=== PATIENT | male | born 1935 | race Caucasian/White ===

== ENCOUNTER 2016-11-02 09:29 | Observation (INO) ==
--- NOTE | 2016-11-02 09:48 | Emergency Department Note ---
Disposition Clinical Impression: Elevated troponin, Weakness Chest pain Qualifiers: Chest pain type: chest pain due to myocardial ischemia Ischemic chest pain type : unstable angina pectoris Qualified Code(s): I20.0 - Unstable angina Disposition: Admitted As Inpatient Condition: Fair Referrals: NO,PCP [Non-Partnered Physician] - Forms: ED Satisfaction Letter General Adult HPI - General Chief complaint: ED Dizziness Stated complaint: Vision issues,CRENSHAW Time Seen by Provider: 11/02/16 09:45 Source: patient Limitations: no limitations Nursing Notes Reviewed: Yes Vital Signs Reviewed: Yes - History of Present Illness Pain Scale: 0 - Related Data Home Medications Medication Instructions Recorded Confirmed Acetaminophen [Tylenol Arthritis] 650 mg PO DAILY PRN 07/18/16 07/18/16 Albuterol Sulfate [Albuterol 2 puff IH Q4HR PRN 07/18/16 07/18/16 Inhaler] Aspirin Enteric Coated [Aspirin EC] 81 mg PO QPM 07/18/16 07/18/16 Fluticasone Propionate Nasal 1 spr NS DAILY PRN 07/18/16 07/18/16 [Flonase] Folic Acid/Vit Bcomp,C [[place] 5 mg PO QPM 07/18/16 07/18/16 Plus Tablet] Omeprazole [PriLOSEC] 40 mg PO QPM 07/18/16 07/18/16 Simvastatin [Zocor] 80 mg PO QPM 07/18/16 07/18/16 Tamsulosin [Flomax] 0.8 mg PO QPM 07/18/16 07/18/16 metFORMIN [Glucophage] 500 mg PO BIDWM 07/18/16 07/18/16 Previous Rx's Medication Instructions Recorded HYDROcodone/Acet 5/325 mg [[place] 2 tab PO ONCE PRN #15 tablet 07/18/16 5-325 mg] Allergies Allergy/AdvReac Type Severity Reaction Status Date / Time acetaminophen [From Percocet] AdvReac COUGHING Verified 07/18/16 12:59 BLOOD Oxycodone [From Percocet] AdvReac COUGHING Verified 07/18/16 12:59 BLOOD Past Medical History - Past Medical History Medical history: Reports: arthritis, cancer, COPD, diabetes, GERD, hyperlipidemia, hypertension Psychiatric history: Reports: no psych history - Social History Smoking Status: Former smoker Smokeless Tobacco Status: No Alcohol use: Reports: none Drug use: Reports: none Physical Exam - General Limitations: no limitations General appearance: alert, in no apparent distress Course Vital Signs Temperature 97.9 F 11/02/16 09:32 Pulse Rate 77 11/02/16 09:32 Respiratory Rate 18 11/02/16 09:32 Blood Pressure 165/79 11/02/16 09:32 O2 Sat by Pulse Oximetry 97 11/02/16 09:32 Temperature 97.9 F 11/02/16 09:32 Pulse Rate 77 11/02/16 09:32 Respiratory Rate 18 11/02/16 09:32 Blood Pressure 165/79 11/02/16 09:32 O2 Sat by Pulse Oximetry 97 11/02/16 09:32 Oxygen Delivery Oxygen Delivery Room Air Medical Decision Making - MDM Narrative Medical decision making narrative: I examined this patient and my medical decision-making was reviewed with the TRAVEL OCCUPATIONAL THERAPIST/PA/Advanced Practice Nurse/Resident Physician. I agree with the documented findings, disposition and treatment plan as described except to the extent set forth below. Patient was seen on arrival by Dr. Sánchez and myself, agree with his evaluation and management plan, supervised care the patient's stay. Patient's family works here in the ER they said that he has had elevation in his PSA it sounds like and is seeing Dr. Knight, patient's worried that he might have prostate cancer again. On Saturday started having some vision changes which she describes as when he looks off to the side it looks like he is looking through "corrugated glass". He said he also will start getting some lightheadedness at times. When he arises. No other symptoms at this time. Denies any chest pain. They say he is diabetic and does not really watch what he eats sugar today is elevated. He has had no chest pain no focal neuro deficits he denies any symptoms at this time. We will do workup on him bloodwork CT chest x-ray EKG a urinalysis and reassess. He has a follow-up appointment coming up with his urologist and they try to get in to see their doctor Dr. Mock today and were unable to see came here. 0955 hrs. patient had an EKG performed shows a sinus rhythm rate is 78 he has 1 PVC, he has a QRS of 106, QTC is 4:30, does have left axis deviation, compared this with an EKG that was done in June with same pattern ; change in rate and did have a PVC then also. 1038 hrs.: Patient labs are back. His troponin is elevated also has an elevated creatinine which is normal for him. He denies any chest pain. His EKG remains unchanged. Jessica bring him in the hospital for rule out ACS. He is in agreement with this plan. Impression is generalized weakness vision changes uncertain etiology. Waiting on his radiology and then we will admit. We will determine if he is already taking aspirin if not will start that again today. He is in agreement with plan. 1049 hrs.: Spoke with patient again to update him on progress and he said he does think he had some chest pressure 2 days ago that only lasted a few minutes while he was at rest. Chest X-Ray 11/02/16 09:46 IMPRESSION: No acute abnormality. D/ / Darci Gonzales MD / Darci Gonzales MD Interpreting Provider: Darci Gonzales MD Head CT 11/02/16 09:46 IMPRESSION: No acute intracranial abnormality. Chronic white matter microangiopathic changes. D/ / Doc Banuelos MD / Doc Banuelos MD Interpreting Provider: Doc Banuelos MD 1115 hrs.: Spoke with the hospitalist, they have accepted the patient for admission. Patient's update in agreement with plan. Waiting on bed. - Lab Data Result diagrams: 11/02/16 09:54 11/02/16 09:54 Lab Results 11/02/16 11/02/16 11/02/16 Range/Units 09:44 09:54 09:54 WBC 5.9 (4.3-11.1) K/mcL RBC 3.75 L (4.19-5.50) M/mcL Hgb 11.8 L (12.9-16.9) g/dL Hct 34.8 L (37.5-50.1) % MCV 92.8 (83.0-100.0) fL MCH 31.5 (28.0-33.3) pg MCHC 33.9 (31.6-35.5) g/dL RDW 13.7 (11.5-14.5) % Plt Count 170 (140-400) K/mcL MPV 10.1 (9.4-12.4) fL Immature Gran % 0.2 (0-4) % Seg Neutrophils % 55.2 % Lymphocytes % 29.8 % Monocytes % 12.3 % Eosinophils % 2.0 % Basophils % 0.5 % Neutrophils # 3.3 (1.6-8.9) K/mcL Lymphocytes # 1.8 (0.6-4.6) K/mcL Monocytes # 0.7 (0.0-1.3) K/mcL Eosinophils # 0.1 (0.0-0.6) K/mcL Basophils # 0.0 (0.0-0.2) K/mcL Sodium 137 (136-145) mEq/L Potassium 4.4 (3.5-4.5) mEq/L Chloride 104 (98-109) mEq/L Carbon Dioxide 23 (19-29) mEq/L BUN 17 (8-26) mg/dL Creatinine 1.21 (0.72-1.25) mg/dL Est GFR ( Amer) > 60 (> 60) Est GFR (Non-Af Amer) 58 L (> 60) BUN/Creatinine Ratio 14 (6-26) Glucose 252 H (70-99) mg/dL POC Glucose 246 H (58-89) Calculated Osmolality 294 (280-300) Calcium 9.8 (8.6-10.8) mg/dL Total Bilirubin 0.8 (0.2-1.2) mg/dL AST 30 (5-34) Units/L ALT 24 (0-55) Units/L Alkaline Phosphatase 55 (38-126) Units/L Troponin I (0-0.03) ng/mL Serum Total Protein 7.1 (6.0-8.3) g/dL Albumin 4.1 (3.5-5.0) g/dL Globulin 3.0 (2.4-3.5) g/dL Albumin/Globulin Ratio 1.4 (1.1-2.2) Urine Color (Yellow) Urine Clarity (Clear) Urine pH (5.0-8.0) pH Units Ur Specific [place] (1.010-1.025) Urine Protein (Neg-Trace) mg/dL Urine Glucose (UA) (Normal) mg/dL Urine Ketones (Negative) mg/dL Urine Blood (Negative) Urine Nitrite (Negative) Urine Bilirubin (Negative) Urine Urobilinogen (Normal) mg/dL Ur Leukocyte Esterase (Negative) Urine Microscopic RBC (0-3) per hpf Urine Microscopic WBC (0-3) per hpf Ur Squamous Epith Cells (None-Few) per lpf Urine Bacteria (None-Few) per hpf Hyaline Casts (None-Few) per lpf Ur Culture Indicated? (NO) 11/02/16 11/02/16 Range/Units 09:54 10:15 WBC (4.3-11.1) K/mcL RBC (4.19-5.50) M/mcL Hgb (12.9-16.9) g/dL Hct (37.5-50.1) % MCV (83.0-100.0) fL MCH (28.0-33.3) pg MCHC (31.6-35.5) g/dL RDW (11.5-14.5) % Plt Count (140-400) K/mcL MPV (9.4-12.4) fL Immature Gran % (0-4) % Seg Neutrophils % % Lymphocytes % % Monocytes % % Eosinophils % % Basophils % % Neutrophils # (1.6-8.9) K/mcL Lymphocytes # (0.6-4.6) K/mcL Monocytes # (0.0-1.3) K/mcL Eosinophils # (0.0-0.6) K/mcL Basophils # (0.0-0.2) K/mcL Sodium (136-145) mEq/L Potassium (3.5-4.5) mEq/L Chloride (98-109) mEq/L Carbon Dioxide (19-29) mEq/L BUN (8-26) mg/dL Creatinine (0.72-1.25) mg/dL Est GFR ( Amer) (> 60) Est GFR (Non-Af Amer) (> 60) BUN/Creatinine Ratio (6-26) Glucose (70-99) mg/dL POC Glucose (58-89) Calculated Osmolality (280-300) Calcium (8.6-10.8) mg/dL Total Bilirubin (0.2-1.2) mg/dL AST (5-34) Units/L ALT (0-55) Units/L Alkaline Phosphatase (38-126) Units/L Troponin I 0.09 H* (0-0.03) ng/mL Serum Total Protein (6.0-8.3) g/dL Albumin (3.5-5.0) g/dL Globulin (2.4-3.5) g/dL Albumin/Globulin Ratio (1.1-2.2) Urine Color Yellow (Yellow) Urine Clarity Cloudy A (Clear) Urine pH 5.5 (5.0-8.0) pH Units Ur Specific [place] 1.019 (1.010-1.025) Urine Protein Trace (Neg-Trace) mg/dL Urine Glucose (UA) 500 H (Normal) mg/dL Urine Ketones Negative (Negative) mg/dL Urine Blood Large H (Negative) Urine Nitrite Negative (Negative) Urine Bilirubin Negative (Negative) Urine Urobilinogen Normal (Normal) mg/dL Ur Leukocyte Esterase Small H (Negative) Urine Microscopic RBC 15-30 H (0-3) per hpf Urine Microscopic WBC 5-15 H (0-3) per hpf Ur Squamous Epith Cells Many H (None-Few) per lpf Urine Bacteria None Seen (None-Few) per hpf Hyaline Casts None Seen (None-Few) per lpf Ur Culture Indicated? YES A (NO)
--- NOTE | 2016-11-02 09:51 | Emergency Department Note ---
Disposition Clinical Impression: Elevated troponin, Weakness Chest pain Qualifiers: Chest pain type: chest pain due to myocardial ischemia Ischemic chest pain type : unstable angina pectoris Qualified Code(s): I20.0 - Unstable angina Disposition: Admitted As Inpatient Condition: Good Time of Disposition: 11:21 General Adult HPI - General Chief complaint: ED Dizziness Stated complaint: Vision issues,CRENSHAW Time Seen by Provider: 11/02/16 09:45 Source: patient Limitations: no limitations Nursing Notes Reviewed: Yes Vital Signs Reviewed: Yes - History of Present Illness HPI Narrative: 81-year-old male history of TIA, hypertension, non insulin-dependent diabetes mellitus, prostate cancer presents with visual changes and headache. He states since Saturday of this week he has been feeling more lightheaded and describes some visual changes such as looking through a corregated particularly when he turned to look at the TV. Sometimes feels lightheaded when he stands up feeling like he needs to pass out. He denies any syncope or falls. Denies any recent fever, illness, cough. He had his eyes check 2 weeks ago with no changes. He does have cataracts the left eye. No change in prescription. His point of care glucose was 240 on arrival. I asked him about his diabetes, he admits on Saturday he ate a large meal that he should not have which consisted of pork and beans and since then he has been having these symptoms. Sugars normally run in the 100s. Says his sugars have slowly been climbing up, he only takes metformin. When asked the patient denies any headaches. However family members report that he has been complaining of a mild headache. Denies any neck pain. Currently having one at this moment. Pain Scale: 0 - Related Data Home Medications Medication Instructions Recorded Confirmed Acetaminophen [Tylenol Arthritis] 650 mg PO DAILY PRN 07/18/16 07/18/16 Albuterol Sulfate [Albuterol 2 puff IH Q4HR PRN 07/18/16 07/18/16 Inhaler] Aspirin Enteric Coated [Aspirin EC] 81 mg PO QPM 07/18/16 07/18/16 Fluticasone Propionate Nasal 1 spr NS DAILY PRN 07/18/16 07/18/16 [Flonase] Folic Acid/Vit Bcomp,C [[place] 5 mg PO QPM 07/18/16 07/18/16 Plus Tablet] Omeprazole [PriLOSEC] 40 mg PO QPM 07/18/16 07/18/16 Simvastatin [Zocor] 80 mg PO QPM 07/18/16 07/18/16 Tamsulosin [Flomax] 0.8 mg PO QPM 07/18/16 07/18/16 metFORMIN [Glucophage] 500 mg PO BIDWM 07/18/16 07/18/16 Previous Rx's Medication Instructions Recorded HYDROcodone/Acet 5/325 mg [[place] 2 tab PO ONCE PRN #15 tablet 07/18/16 5-325 mg] Allergies Allergy/AdvReac Type Severity Reaction Status Date / Time acetaminophen [From Percocet] AdvReac COUGHING Verified 07/18/16 12:59 BLOOD Oxycodone [From Percocet] AdvReac COUGHING Verified 07/18/16 12:59 BLOOD All systems ED: reviewed and negative except as stated. Constitutional: Denies: fever, chills Eyes: Reports: vision change Cardiovascular: Denies: chest pain Respiratory: Denies: cough, dyspnea Gastrointestinal: Denies: abdominal pain, nausea, vomiting Musculoskeletal: Denies: back pain, neck pain Integumentary: Denies: rash Past Medical History - Past Medical History Attestation: Yes The following information was validated with the patient. Source: patient Medical history: Reports: arthritis, cancer, COPD, diabetes, GERD, hyperlipidemia, hypertension Psychiatric history: Reports: no psych history - Social History Smoking Status: Former smoker Smokeless Tobacco Status: No Alcohol use: Reports: none Drug use: Reports: none Physical Exam - General Limitations: no limitations General appearance: alert, in no apparent distress - Head Head exam: atraumatic, normocephalic, normal inspection - Eye Eye exam: Present: normal appearance, PERRL, EOMI - Expanded Eye Exam Visual acuity (R) = 20/: 25 Visual acuity (L) = 20/: 25 With correction: Yes - ENT ENT exam: normal exam, normal oropharynx, mucous membranes moist - Neck Neck exam: Present: normal inspection, full ROM, trachea midline. Absent: tenderness - Chest Chest inspection: Present: normal inspection, symmetric chest wall rise. Absent : tenderness - Respiratory Respiratory exam: Present: normal lung sounds bilaterally - Cardiovascular Cardiovascular exam: Present: regular rate, normal rhythm, systolic murmur (old) - Abdominal Exam Abdominal exam: Present: soft, Non-Tender, normal bowel sounds. Absent: tenderness, distention, guarding, rebound, rigidity - Extremities Exam Extremities exam: Present: normal inspection, full ROM. Absent: tenderness, pedal edema - Expanded Lower Extremity Exam Neurovascular/Tendon exam: Absent: pulse deficit, motor deficit, tendon deficit - Back Exam Back exam: Present: normal inspection, full ROM. Absent: tenderness - Neurological Exam Neurological exam: Present: alert, oriented X3, CN II-XII intact, normal gait - Expanded Neurological Exam Patient oriented to: Present: person, place, time Speech: Present: fluid speech Cranial nerves: EOM function (II, III, IV, ): Normal, facial sensation (V): Normal, facial palsy (VII): Normal, gag reflex (IX): Normal, spinal accessory function (XI): Normal, tongue deviation (XII): Normal Cerebellar function: wide-based gait Motor strength - LUE: 5/5 Motor strength - RUE: 5/5 Motor strength - LLE: 5/5 Motor strength - RLE: 5/5 Upper motor neuron exam: emily neglect: Absent bilaterally Sensory exam upper extremity: light touch: Normal Sensory exam lower extremity: light touch: Normal - Psychiatric Psychiatric exam: Present: normal affect, normal mood - Skin Skin exam: Present: warm, dry, intact, normal color Course Course Narrative: 81-year-old male presents with visual changes lightheadedness. This is been ongoing for the past 4 days. Does contribute this to the increase in his blood sugars. Vital signs reviewed and are stable. He is afebrile. Patient has a normal wide base gait. Neurologic exam is normal without any focal neural deficits. Does have a systolic murmur they states is old. His exam is otherwise unremarkable. He has normal visual acuity 25/20. Pupils are equal round reactive to light bilaterally. Will check is CT head, basic labs, troponin EKG. Patients in agreement with this plan. - Reevaluation(s) Reevaluation #1: EKG shows a normal sinus rhythm without any acute ischemic changes. Troponins elevated 0.09. Patient does reports 2 days ago he has chest discomfort midsternum while at rest. No radiation of the pain. It only lasted a few minutes. Resolved on its own. Typically takes a baby aspirin at suppertime 7 o 'clock. Has not taken it today. He will get a full dose aspirin. He currently is chest pain free. He currently denies any lightheadedness or visual changes at this time. Creatinine is 1.21. Will admit to medicine for generalized weakness, elevated troponin, chest pain R/O ACS. Patient is in agreement with this plan. CT head does not reveal any acute intracranial abnormality. Time: 10:44 - Consultations Consultation #1: Spoke with on-call hospitalist Dr. Garcia, ok to admit for elevated troponin, generalized weakness, R/O ACS. No further orders at this time Time: 11:21 Vital Signs Temperature 97.9 F 11/02/16 09:32 Pulse Rate 77 11/02/16 09:32 Respiratory Rate 18 11/02/16 09:32 Blood Pressure 165/79 11/02/16 09:32 O2 Sat by Pulse Oximetry 97 11/02/16 09:32 Temperature 97.9 F 11/02/16 09:32 Pulse Rate 77 11/02/16 09:32 Respiratory Rate 18 11/02/16 09:32 Blood Pressure 165/79 11/02/16 09:32 O2 Sat by Pulse Oximetry 97 11/02/16 09:32 Oxygen Delivery Oxygen Delivery Room Air Medical Decision Making - Medical Records Medical records reviewed: Yes I reviewed the patient's medical records. - Lab Data Lab results reviewed: Yes I reviewed the patient's lab results. Result diagrams: 11/02/16 09:54 11/02/16 09:54 Lab Results 11/02/16 11/02/16 11/02/16 Range/Units 09:44 09:54 09:54 WBC 5.9 (4.3-11.1) K/mcL RBC 3.75 L (4.19-5.50) M/mcL Hgb 11.8 L (12.9-16.9) g/dL Hct 34.8 L (37.5-50.1) % MCV 92.8 (83.0-100.0) fL MCH 31.5 (28.0-33.3) pg MCHC 33.9 (31.6-35.5) g/dL RDW 13.7 (11.5-14.5) % Plt Count 170 (140-400) K/mcL MPV 10.1 (9.4-12.4) fL Immature Gran % 0.2 (0-4) % Seg Neutrophils % 55.2 % Lymphocytes % 29.8 % Monocytes % 12.3 % Eosinophils % 2.0 % Basophils % 0.5 % Neutrophils # 3.3 (1.6-8.9) K/mcL Lymphocytes # 1.8 (0.6-4.6) K/mcL Monocytes # 0.7 (0.0-1.3) K/mcL Eosinophils # 0.1 (0.0-0.6) K/mcL Basophils # 0.0 (0.0-0.2) K/mcL Sodium 137 (136-145) mEq/L Potassium 4.4 (3.5-4.5) mEq/L Chloride 104 (98-109) mEq/L Carbon Dioxide 23 (19-29) mEq/L BUN 17 (8-26) mg/dL Creatinine 1.21 (0.72-1.25) mg/dL Est GFR ( Amer) > 60 (> 60) Est GFR (Non-Af Amer) 58 L (> 60) BUN/Creatinine Ratio 14 (6-26) Glucose 252 H (70-99) mg/dL POC Glucose 246 H (58-89) Calculated Osmolality 294 (280-300) Calcium 9.8 (8.6-10.8) mg/dL Total Bilirubin 0.8 (0.2-1.2) mg/dL AST 30 (5-34) Units/L ALT 24 (0-55) Units/L Alkaline Phosphatase 55 (38-126) Units/L Troponin I (0-0.03) ng/mL Serum Total Protein 7.1 (6.0-8.3) g/dL Albumin 4.1 (3.5-5.0) g/dL Globulin 3.0 (2.4-3.5) g/dL Albumin/Globulin Ratio 1.4 (1.1-2.2) Urine Color (Yellow) Urine Clarity (Clear) Urine pH (5.0-8.0) pH Units Ur Specific [place] (1.010-1.025) Urine Protein (Neg-Trace) mg/dL Urine Glucose (UA) (Normal) mg/dL Urine Ketones (Negative) mg/dL Urine Blood (Negative) Urine Nitrite (Negative) Urine Bilirubin (Negative) Urine Urobilinogen (Normal) mg/dL Ur Leukocyte Esterase (Negative) Urine Microscopic RBC (0-3) per hpf Urine Microscopic WBC (0-3) per hpf Ur Squamous Epith Cells (None-Few) per lpf Urine Bacteria (None-Few) per hpf Hyaline Casts (None-Few) per lpf Ur Culture Indicated? (NO) 11/02/16 11/02/16 Range/Units 09:54 10:15 WBC (4.3-11.1) K/mcL RBC (4.19-5.50) M/mcL Hgb (12.9-16.9) g/dL Hct (37.5-50.1) % MCV (83.0-100.0) fL MCH (28.0-33.3) pg MCHC (31.6-35.5) g/dL RDW (11.5-14.5) % Plt Count (140-400) K/mcL MPV (9.4-12.4) fL Immature Gran % (0-4) % Seg Neutrophils % % Lymphocytes % % Monocytes % % Eosinophils % % Basophils % % Neutrophils # (1.6-8.9) K/mcL Lymphocytes # (0.6-4.6) K/mcL Monocytes # (0.0-1.3) K/mcL Eosinophils # (0.0-0.6) K/mcL Basophils # (0.0-0.2) K/mcL Sodium (136-145) mEq/L Potassium (3.5-4.5) mEq/L Chloride (98-109) mEq/L Carbon Dioxide (19-29) mEq/L BUN (8-26) mg/dL Creatinine (0.72-1.25) mg/dL Est GFR ( Amer) (> 60) Est GFR (Non-Af Amer) (> 60) BUN/Creatinine Ratio (6-26) Glucose (70-99) mg/dL POC Glucose (58-89) Calculated Osmolality (280-300) Calcium (8.6-10.8) mg/dL Total Bilirubin (0.2-1.2) mg/dL AST (5-34) Units/L ALT (0-55) Units/L Alkaline Phosphatase (38-126) Units/L Troponin I 0.09 H* (0-0.03) ng/mL Serum Total Protein (6.0-8.3) g/dL Albumin (3.5-5.0) g/dL Globulin (2.4-3.5) g/dL Albumin/Globulin Ratio (1.1-2.2) Urine Color Yellow (Yellow) Urine Clarity Cloudy A (Clear) Urine pH 5.5 (5.0-8.0) pH Units Ur Specific [place] 1.019 (1.010-1.025) Urine Protein Trace (Neg-Trace) mg/dL Urine Glucose (UA) 500 H (Normal) mg/dL Urine Ketones Negative (Negative) mg/dL Urine Blood Large H (Negative) Urine Nitrite Negative (Negative) Urine Bilirubin Negative (Negative) Urine Urobilinogen Normal (Normal) mg/dL Ur Leukocyte Esterase Small H (Negative) Urine Microscopic RBC 15-30 H (0-3) per hpf Urine Microscopic WBC 5-15 H (0-3) per hpf Ur Squamous Epith Cells Many H (None-Few) per lpf Urine Bacteria None Seen (None-Few) per hpf Hyaline Casts None Seen (None-Few) per lpf Ur Culture Indicated? YES A (NO) - Radiology Data Radiology results reviewed: Yes I reviewed the patient's radiology results. Chest X-Ray 11/02/16 09:46 IMPRESSION: No acute abnormality. D/ / Darci Gonzales MD / Darci Gonzales MD Interpreting Provider: Darci Gonzales MD Head CT 11/02/16 09:46 IMPRESSION: No acute intracranial abnormality. Chronic white matter microangiopathic changes. D/ / Doc Banuelos MD / Doc Banuelos MD Interpreting Provider: Doc Banuelos MD
[2016-11-02 10:03] LABS: Basophils % 0.5 %; Eosinophils # 0.1 K/mcL (0.0-0.6); Hematocrit 34.8 % (37.5-50.1); Hemoglobin 11.8 g/dL (12.9-16.9); Immature Granulocytes % 0.2 % (0-4); Lymphocytes # 1.8 K/mcL (0.6-4.6); Lymphocytes % 29.8 %; Mean Corpuscular HGB Conc 33.9 g/dL (31.6-35.5); Mean Corpuscular Hemoglobin 31.5 pg (28.0-33.3); Mean Corpuscular Volume 92.8 fL (83.0-100.0); Mean Platelet Volume 10.1 fL (9.4-12.4); Monocytes # 0.7 K/mcL (0.0-1.3); Monocytes % 12.3 %; Neutrophils # 3.3 K/mcL (1.6-8.9); Platelet Count 170 K/mcL (140-400); Red Blood Count 3.75 M/mcL (4.19-5.50); Red Cell Distribution Width 13.7 % (11.5-14.5); Segmented Neutrophils % 55.2 %
[2016-11-02 10:19] LABS: Alanine Aminotransferase 24 Units/L (0-55); Albumin 4.1 g/dL (3.5-5.0); Albumin/Globulin Ratio 1.4 (1.1-2.2); Alkaline Phosphatase 55 Units/L (38-126); Aspartate Amino Transferase 30 Units/L (5-34); BUN/Creatinine Ratio 14 (6-26); Bilirubin,Total 0.8 mg/dL (0.2-1.2); Blood Urea Nitrogen 17 mg/dL (8-26); Calcium 9.8 mg/dL (8.6-10.8); Carbon Dioxide 23 mEq/L (19-29); Chloride 104 mEq/L (98-109); Glucose 252 mg/dL (70-99); Osmolality,Calculated 294 (280-300); Potassium 4.4 mEq/L (3.5-4.5); Sodium 137 mEq/L (136-145); Total Protein 7.1 g/dL (6.0-8.3); eGFR For African Americans > 60 (> 60); eGFR For Non-African Americans 58 (> 60)
[2016-11-02 10:28] LABS: Bilirubin,Urine Negative (Negative); Blood,Urine Large (Negative); Clarity,Urine Cloudy (Clear); Color,Urine Yellow (Yellow); Glucose,Urine (UA) 500 mg/dL (Normal); Ketones,Urine Negative (Negative); Leukocyte Esterase,Urine Small (Negative); Nitrite,Urine Negative (Negative); PH,Urine 5.5 pH Units (5.0-8.0); Protein,Urine Trace mg/dL (Neg-Trace); Specific Gravity,Urine 1.019 (1.010-1.025); Urobilinogen,Urine Normal (Normal)
[2016-11-02 10:29] LABS: Bacteria,Urine None Seen per hpf (None-Few); Hyaline Casts,Urine None Seen per lpf (None-Few); RBC,Urine 15-30 per hpf (0-3); Squamous Epithelial Cell,Urine Many per lpf (None-Few)
[2016-11-02] MEDS ORDERED: Aspirin 81 MG TAB.CHEW PO STA (10:40)
[2016-11-02] MEDS ORDERED: *HR* Morphine 2 MG/ML SYRINGE IVP PRN (11:43)
[2016-11-02] MEDS ORDERED: Naloxone 0.4 MG/ML INJ IVP PRN (11:43)
[2016-11-02] MEDS ORDERED: Ondansetron 4 MG/2 ML VIAL IVP PRN (11:43)
[2016-11-02] MEDS ORDERED: Acetaminophen 325 MG TABLET PO PRN (11:46)
[2016-11-02] MEDS ORDERED: Fluticasone Propionate Nasal 50 MCG/SPRAY BOTTLE NS PRN (11:46)
[2016-11-02 12:16] LABS: Prothrombin Time 11.1 Seconds (9.4-12.1)
[2016-11-02] MEDS ORDERED: *HR* Dextrose 50 % in Water (Syg) 50 ML SYRINGE IVP PRN (12:54)
[2016-11-02] MEDS ORDERED: D5% in Water 1,000 ML IVC PRN (12:54)
[2016-11-02] MEDS ORDERED: Dextrose Gel 15 GM PO PRN ×2 (12:54)
[2016-11-02] MEDS ORDERED: Ipratropium/Albuterol Neb 3 ML IH PRN (12:55)
[2016-11-02 12:58] LABS: Magnesium 2.1 mg/dL (1.6-2.6)
[2016-11-02] MEDS ORDERED: Ibuprofen 400 MG TABLET PO PRN (13:09)
--- NOTE | 2016-11-02 13:09 | Internal Med History&Physical ---
<Kobe Jensen - Last Filed: 11/02/16 13:36> Date of Encounter: 11/02/16 Time of Encounter: 12:15 Assessment and Plan (1) Chest pain Current visit: Yes Status: Acute Patient presents with acute chest pain which he describes as centrally located in his chest that does not radiate to neck arms or back. Patient denies previous cardiac history or history of SD. EV echocardiogram ordered as well as nuclear pharm stress test. We will trend troponins 3. Patient placed on continuous cardiac telemetry as well as supplemental O2 with titration if SPO2 less than 92% as well as continuous SPO2 monitoring. We will continue patient' s aspirin and statin therapy. Consider cardiology consult based on results of stress test and echocardiogram. Patient to be monitored closely. Qualifiers: Chest pain type: other chest pain Qualified Code(s): R07.89 - Other chest pain; R07.8 - Other chest pain (2) Elevated troponin Current visit: Yes Status: Acute Patient presents with initial elevated troponin level of 0.09 in the ED. We will trend troponins [address] patient on continuous cardiac telemetry. Patient to be monitored closely. (3) Dizziness Current visit: Yes Status: Acute Patient presents with complaint of acute dizziness related to chest pain and uncontrolled hyperglycemia. Patient placed on falls precautions/up with assist/ bedrest with bathroom privileges with assist only status due to lightheadedness and dizziness. (4) Hypertension Current visit: Yes Status: Chronic Patient presents with history of chronic hypertension. Patient currently does not take medications for hypertension. Monitor patient and vital signs and consider adding Lopressor to medications if patient becomes hypertensive. Qualifiers: Hypertension type: essential hypertension Qualified Code(s): I10 - Essential (primary) hypertension (5) Hyperlipidemia Current visit: Yes Status: Chronic Patient presents with history of chronic hyperlipidemia. Lipid panel ordered. We will continue patient's simvastatin. Qualifiers: Hyperlipidemia type: pure hypercholesterolemia Qualified Code(s): E78.00 - Pure hypercholesterolemia, unspecified; E78.0 - Pure hypercholesterolemia (6) COPD (chronic obstructive pulmonary disease) Current visit: Yes Status: Chronic Patient presents with history of chronic obstructive pulmonary disease. Duo nebs ordered every 4 when necessary. Supplemental O2 titration if SPO2 less than 92% and continuous SPO2 monitoring ordered. Monitor patient and vital signs. Qualifiers: COPD type: unspecified COPD Qualified Code(s): J44.9 - Chronic obstructive pulmonary disease, unspecified (7) Diabetes Current visit: Yes Status: Chronic Patient presents with history of chronic diabetes type 2 controlled with oral hyperglycemics. We will hold patient's metformin in order low-dose correction insulin sliding scale with blood glucose monitoring before meals at bedtime. A1C ordered. 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 Patient reports appointment in the next few weeks with his provider. Patient encouraged to keep follow-up appointment. Will continue patient's Flomax. (9) DVT prophylaxis Current visit: Yes Status: Acute Patient placed on DVT prophylaxis due to admission protocol and current bedrest status. Heparin 5000 units SQ every 8 ordered. Will monitor patient for signs of bleeding. Internal Medicine - H&P: HPI Chief complaint: Dizziness/Lightheadedness Admitted From: Emergency Dept Plans for Post Hospital Care: Home History of present illness: Mr. Leong is a 81 year old male who presents from the ED with chief complaint of dizziness and lightheadedness he states this patient Ashley of this week and has increased over the past four days. He reports some visual changes of blurriness in his left eye with the dizziness that resolves. He also states he feels lightheaded and dizzy when he stands up but denies syncope or falls. Mr. Leong reports central pressure in his chest that began on Saturday as well. He states that the pain does not radiate to his neck, back, or arms. He denies chest pain at this time. Patient also states he has a sore throat from taking acetaminophen. Patient is diabetic controls hyperglycemia with oral metformin. However he states his glucose levels have been running high recently greater than 200. Patient reports headache when his glucose is high. Patient denies any recent illness, nausea, vomiting, diarrhea, generalized weakness, unusual bleeding in stool or urine. Patient has a history of arthritis, prostate cancer which he describes as just returned and for which she is taking testosterone suppressant injections, diabetes controlled with oral hyperglycemics, GERD, HLD, HTN. Patient denies any history of SD or angioplasty. Patient is hard of hearing but responds appropriately. Mr. Leong is a former smoker of cigars who reports quitting in 2007. Patient is at moderate risk for cardiac event to to smoking history and cardiac risk factors of DM, HLD, HTN, and initial troponin level of 0.09. He will be admitted as observation status with orders for echocardiogram and nuclear pharm stress test. He will be placed on continuous cardiac telemetry with supplemental O2 and continuous SaO2 monitoring. Trend troponins 3. Lipid panel and A1C ordered. Will continue patient's home meds and order DuoNebs Q4 PRN. Cardiac diet ordered with NPO after midnight for a.m. testing. Patient to be monitored closely. Time spent with patient >40 minutes. Past Med Surg Social Fam HX - Past Medical History Source: patient Medical history: arthritis, cancer (Prostate), COPD, diabetes, GERD, hyperlipidemia, hypertension Psychiatric history: no psych history - Social History Smoking Status: Former smoker Smokeless Tobacco Status: No Alcohol use: none Drug use: none Current living situation: Home - Independent Activity Level: Independent ambulation, Very active Recent Out of Country Travel Within the Last 8 Weeks: No Exposure or Possible Exposure to Illness During Travel: No - Family History Father Race: Family Member Ethnicity: Non- Living Status: Age at : 81 Cause of : Lung silicosis Hx Family Respiratory Disorders: Yes (Silicosis) Mother Race: Family Member Ethnicity: Non- Living Status: Age at : 57 Cause of : Lung cancer Hx Family Respiratory Disorders: Yes (Pneumonia, lung cancer) Brother Family Member Ethnicity: Non- Living Status: Age at : 80 Cause of : Colon cancer Hx Family Cardiac Disorders: Yes (HD) Hx Family Cancer: Yes (Colon) Sister Race: Family Member Ethnicity: Non- Living Status: Still Living Hx Family Cardiac Disorders: Yes (Stroke) Internal Medicine - H&P: Meds Acetaminophen [Tylenol Arthritis] 650 mg PO DAILY PRN 07/18/16 [History] Albuterol Sulfate [Albuterol Inhaler] 2 puff IH Q4HR PRN 07/18/16 [History] Aspirin Enteric Coated [Aspirin EC] 81 mg PO QPM 07/18/16 [History] Fluticasone Propionate Nasal [Flonase] 1 spr NS DAILY PRN 07/18/16 [History] Folic Acid/Vit Bcomp,C [Folbee Plus Tablet] 5 mg PO QPM 07/18/16 [History] Omeprazole [PriLOSEC] 40 mg PO QPM 07/18/16 [History] Simvastatin [Zocor] 80 mg PO QPM 07/18/16 [History] Tamsulosin [Flomax] 0.8 mg PO QPM 07/18/16 [History] metFORMIN [Glucophage] 500 mg PO BIDWM 07/18/16 [History] Allergies acetaminophen [From Percocet] Adverse Reaction (Verified 07/18/16 12:59) COUGHING BLOOD Oxycodone [From Percocet] Adverse Reaction (Verified 07/18/16 12:59) COUGHING BLOOD All Systems PM: A 10-system review of systems was performed and is negative for pertinent findings except as documented above in the HPI. - Constitutional Constitutional: no chills, no fever(s), no night sweats - EENT Eyes: as per HPI, blurry vision Ears: as per HPI, decreased hearing Nose, mouth and throat: as per HPI, sore throat - Breasts Breasts: as per HPI - Cardiovascular Cardiovascular ROS IM: as per HPI, chest pain (Centralized chest pressure that does not radiate) - Respiratory Respiratory: no cough, no dyspnea, no wheezing, no excessive phlegm production - Gastrointestinal Gastrointestinal: no abdominal pain, no diarrhea, no hematemesis, no hematochezia, no melena, no nausea, no vomiting - Genitourinary Genitourinary ROS male: as per HPI - Musculoskeletal Musculoskeletal ROS IM: as per HPI, arthralgias - Integumentary Integumentary IM: no rash, no unusual bruising - Neurological Neurological ROS: no confusion, no convulsions, no focal weakness, no numbness, no tingling, no tremor(s) - Psychiatric Psychiatric: as per HPI - Endocrine Endocrine IM: as per HPI - Hematologic/Lymphatic Hematologic/Lymphatic: no easy bruising - Allergic/Immunologic Allergic/Immunologic: as per HPI, seasonal rhinorrhea - Constitutional Vitals: Temp Pulse Resp BP Pulse Ox 98.1 F 83 17 156/88 93 11/02/16 12:23 11/02/16 12:23 11/02/16 12:23 11/02/16 12:23 11/02/16 12:23 General appearance: Present: cooperative, A&O X 3, pleasant, no acute distress, obese, answers questions appropriately - Head Head exam: Present: atraumatic, normocephalic - Eye Eye exam: Present: PERRL, conjuntiva pink, sclera anicteric Pupils: Present: PERRL - ENT ENT exam: Present: normal exam, normal external ear exam - Neck Neck exam general surgery: Present: normal inspection, supple, trachea midline. Absent: lymphadenopathy - Respiratory Respiratory exam: Present: CTAB. Absent: accessory muscle use, rales, rhonchi, wheezes - Cardiovascular Cardiovascular exam: Present: RRR, +S1, +S2. Absent: diastolic murmur, gallop, rubs, systolic murmur - GI/Abdominal GI/Abdominal exam: Present: normal bowel sounds, soft, no peritoneal signs. Absent: distended, tenderness - Rectal Rectal exam: Present: deferred - Additional comments: exam deferred. - Extremities Exam Extremities exam: Present: pedal edema (Mild pedeal edema that is non-pitting bilaterally), warm, radial pulses palpable and symetrical. Absent: calf tenderness, cyanotic - Back Exam Back exam: Present: normal inspection - Neurological Exam Neurological exam: Present: CN II-XII intact, oriented X3, no focal deficits. Absent: pronater drift, facial droop, speech deficit - Psychiatric Psychiatric exam: Present: normal affect, normal mood - Skin Skin exam: Present: dry, intact Internal Med - H&P Results - Labs CBC & Chem 7: 11/02/16 09:54 11/02/16 09:54 - EKG Data EKG shows normal: sinus rhythm - EKG Data Prior EKG available for review: yes When compared to previous EKG: there is no significant change EKG comments: 11/02/16 13:20 EKG dated 07/16/16 shows sinus rhythm with occasional ventricular premature complexes. EKG dated 11/02/16 shows sinus rhythm with occasional ventricular premature complexes and marked left axis deviation. <Zan Bran - Last Filed: 11/02/16 16:40> Date of Encounter: 11/02/16 Internal Medicine - H&P: HPI History of present illness: Mr. Leong is a 81 year old male All Systems PM: A 10-system review of systems was performed and is negative for pertinent findings except as documented above in the HPI. - Constitutional Vitals: Temp Pulse Resp BP Pulse Ox 98.1 F 83 17 156/88 92 11/02/16 12:23 11/02/16 12:23 11/02/16 12:23 11/02/16 12:23 11/02/16 14:34 Internal Med - H&P Results - Labs CBC & Chem 7: 11/02/16 09:54 11/02/16 09:54 - Attending Attestation I have seen and examined the patient at around 15:45. I have discussed the patient with Kobe Jensen NP. I have reviewed the orders and the note. Patient is a 81-year-old male with a past history of hypertension, hyperlipidemia, COPD, diabetes, GERD and prostate cancer. He presents to the ED with complaints of dizziness and lightheadedness. Symptoms started about 2- 3 days ago. Initially complains of visual changes or blurriness of his vision. He also complains of lightheadedness and dizziness when he stands up but no history of syncope. Patient also states he has central chest tightness and pressure that also began around the same time. Pain does not radiate. At present he is asymptomatic. Patient denies shortness of breath, denies palpitations, denies abdominal pain or vomiting or diarrhea or fever. No history of coronary artery disease. No other associated symptoms. No aggravating or alleviating factors. On examination patient is awake and alert. Not in any distress. Patient is hard of hearing. Family is at bedside. Patient and family provide history. Patient is being admitted for chest pain rule out ACS. We will trend her troponin. Echocardiogram is pending and nuclear stress test is pending. Patient and family explained about condition and plan of care. Understood and agreed. No unanswered questions. CODE STATUS full code. Heart rate 83, blood pressure 156/88, O2 sat 93% on room air, heart S1-S2 positive loud systolic murmur+ no rubs, lungs bilateral good air entry no wheezes or crackles, abdomen soft nontender no masses or guarding, extremities 4 with mild bilateral leg edema.
[2016-11-02] MEDS: Pantoprazole 40 MG VIAL IVP SCH (15:05)
[2016-11-02] MEDS: Insulin LISPRO 300 UNITS/3 ML VIAL SQ SCH ×2 (17:33→20:30)
[2016-11-02] MEDS: Aspirin Enteric Coated 81 MG Tablet PO SCH (17:34)
[2016-11-02] MEDS: *HR* Heparin 5,000 UNIT/ML VIAL SQ SCH (17:34)
[2016-11-02] MEDS: Vitamin B Complex/Vit C/Vit E 1 EACH TABLET PO SCH (17:34)
--- NOTE | 2016-11-02 17:54 | Electrocardiograph Report ---
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
[2016-11-02] MEDS: Famotidine 20 MG TABLET PO SCH (20:30)
[2016-11-03 01:51] LABS: Basophils % 0.6 %; Eosinophils # 0.2 K/mcL (0.0-0.6); Hematocrit 31.9 % (37.5-50.1); Hemoglobin 10.7 g/dL (12.9-16.9); Immature Granulocytes % 0.2 % (0-4); Lymphocytes # 2.1 K/mcL (0.6-4.6); Lymphocytes % 38.6 %; Mean Corpuscular HGB Conc 33.5 g/dL (31.6-35.5); Mean Corpuscular Hemoglobin 31.3 pg (28.0-33.3); Mean Corpuscular Volume 93.3 fL (83.0-100.0); Mean Platelet Volume 10.4 fL (9.4-12.4); Monocytes # 0.8 K/mcL (0.0-1.3); Neutrophils # 2.3 K/mcL (1.6-8.9); Platelet Count 160 K/mcL (140-400); Red Blood Count 3.42 M/mcL (4.19-5.50); Red Cell Distribution Width 13.6 % (11.5-14.5); Segmented Neutrophils % 43.6 %
[2016-11-03 02:08] LABS: BUN/Creatinine Ratio 15 (6-26); Blood Urea Nitrogen 18 mg/dL (8-26); Calcium 9.2 mg/dL (8.6-10.8); Carbon Dioxide 29 mEq/L (19-29); Chloride 103 mEq/L (98-109); Chol/HDL Ratio 3.4 (0-4.9); Cholesterol 142 mg/dL (< 200); Glucose 190 mg/dL (70-99); HDL Cholesterol 42 mg/dL (40-59); LDL Cholesterol,Calculated 72 mg/dL (0-99); Osmolality,Calculated 293 (280-300); Sodium 138 mEq/L (136-145); Triglycerides 141 mg/dL (< 150); eGFR For African Americans > 60 (> 60); eGFR For Non-African Americans 60 (> 60)
[2016-11-03] MEDS: *HR* Heparin 5,000 UNIT/ML VIAL SQ SCH ×2 (06:08→18:09)
[2016-11-03] MEDS ORDERED: Regadenoson 0.4 MG/5 ML SYRINGE IVP ONE (07:24)
--- NOTE | 2016-11-03 10:55 | Cardiology Consult Note ---
<Marcella Adkins Lucien - Last Filed: 11/03/16 11:45> Date of Encounter: 11/03/16 Time of Encounter: 10:45 Assessment and Plan (1) NSTEMI (non-ST elevated myocardial infarction) Current Visit: Yes Status: Acute Troponin 0.08, 0.09, 0.10. No acute ischemic ECG changes. Pain free upon exam. Reports atypical/typical chest pain symptoms for the past several months. Risk factors for CAD: HTN, HLD, DMII. Recommend proceeding with [facility] with possible PCI; alternatives, risks, and benefits discussed. Patient and family are agreeable to proceed. Change zocor (on 80 mg) to atorvastatin. Continue asa. Will start betablocker. Echocardiogram pending. Cardiac rehab order placed. Further recommendations to follow. (2) Dizziness Current Visit: Yes Status: Acute Reports triggered by abrupt position change. Echocardiogram pending. Head CT negative for acute finding. Will check carotid ultrasound. Discussion w patient/family: The assessment and plan as outlined above was discussed with the patient and/or family members who expressed understanding and agreement. All questions were answered. Thank you for involving us in the care of your patient. Please call with any questions. The patient will be discussed and reviewed with Dr. Ruggiero; changes to be made accordingly. History of Present Illness Consult date: 11/03/16 Requesting physician: Lydia Cheng Consult reason: elevated troponin Chief complaint: chest pain/dizziness History of present illness: Mr. Leong is a 81 year old male with PMHx significant for DMII, GERD, HTN, COPD, and HLD who presented to the ED with complaints of dizziness associated with headache. He reports symptoms have been occurring for the past several weeks. Symptoms worsen with standing up or abrupt movement. He also reports non- radiating midsternal chest discomfort that occurs with rest and exertion; pain lasts sometimes all day or several minutes at time. Reports blurred vision in left eye, sometimes both, that has been present for the past month--has been seen by Teasel Setter who states blurred vision is likely from cataracts. Prior CV testing: TTE 01/26/15: LVEF 65%, moderate LVDD, severely dilated LA, mildly dilated RA, mild-moderate , moderate MAC, normal wall motion Past Med Surg Social Fam HX - Past Medical History Medical history: arthritis, cancer, COPD, GERD, hyperlipidemia, hypertension, kidney stones Psychiatric history: no psych history - Social History Smoking Status: Former smoker Smokeless Tobacco Status: No Alcohol use: none Drug use: none - Family History Father Race: Family Member Ethnicity: Non- Living Status: Age at : 81 Cause of : Lung silicosis Hx Family Respiratory Disorders: Yes (Silicosis) Mother Race: Family Member Ethnicity: Non- Living Status: Age at : 57 Cause of : Lung cancer Hx Family Respiratory Disorders: Yes (Pneumonia, lung cancer) Brother Family Member Ethnicity: Non- Living Status: Age at : 80 Cause of : Colon cancer Hx Family Cardiac Disorders: Yes (HD) Hx Family Cancer: Yes (Colon) Sister Race: Family Member Ethnicity: Non- Living Status: Still Living Hx Family Cardiac Disorders: Yes (Stroke) Medications and Allergies Acetaminophen [Tylenol Arthritis] 650 mg PO DAILY PRN 07/18/16 [History] Albuterol Sulfate [Albuterol Inhaler] 2 puff IH Q4HR PRN 07/18/16 [History] Aspirin Enteric Coated [Aspirin EC] 81 mg PO QPM 07/18/16 [History] Fluticasone Propionate Nasal [Flonase] 1 spr NS DAILY PRN 07/18/16 [History] Folic Acid/Vit Bcomp,C [Folbee Plus Tablet] 5 mg PO QPM 07/18/16 [History] Omeprazole [PriLOSEC] 40 mg PO QPM 07/18/16 [History] Simvastatin [Zocor] 80 mg PO QPM 07/18/16 [History] Tamsulosin [Flomax] 0.8 mg PO QPM 07/18/16 [History] metFORMIN [Glucophage] 500 mg PO BIDWM 07/18/16 [History] Allergies acetaminophen [From Percocet] Adverse Reaction (Verified 07/18/16 12:59) COUGHING BLOOD Oxycodone [From Percocet] Adverse Reaction (Verified 07/18/16 12:59) COUGHING BLOOD All Systems Review: A 10-system review of systems was performed and is negative for pertinent findings except as documented above in the HPI. Physical Examination Vital Signs, Last 4 Hours Temp Pulse Resp BP Pulse Ox 11/03/16 07:19 97.9 F 70 15 134/86 96 General: Conversant, Other (hard of hearing) HEENT: Atraumatic, Normocephaly Neck: Other (right carotid bruit) Cardiac: Reg Rate and Rhythm, Normal S1 and S2 Lungs: Normal Breath Sounds Neuro: Alert and responsive Abdomen: Soft Skin: No rashes noted on visualized skin Musculoskeletal: No Chest Wall Tenderness Extremities: No Edema, Normal Pulses Results 11/03/16 01:26 11/03/16 01:26 Lab Results 11/02/16 11/02/16 11/03/16 17:06 22:54 01:26 WBC 5.3 Hgb 10.7 L Hct 31.9 L Plt Count 160 Sodium Potassium Chloride Carbon Dioxide BUN Creatinine Glucose Calcium Troponin I 0.08 H* 0.10 H* 11/03/16 01:26 WBC Hgb Hct Plt Count Sodium 138 Potassium 4.0 Chloride 103 Carbon Dioxide 29 BUN 18 Creatinine 1.18 Glucose 190 H Calcium 9.2 Troponin I Active Medications Albuterol Sulfate (Albuterol Inhaler) 2 puff IH Q4HR PRN PRN Reason: Shortness Of Breath Stop: 05/04/17 11:47 Albuterol/Ipratropium (Duoneb) 3 ml IH [id number] PRN; Protocol PRN Reason: Shortness Of Breath/Wheezing Stop: 05/04/17 12:56 Aspirin (Aspirin Ec) 81 mg PO QPM [facility] Stop: 05/04/17 18:01 Last Admin: 11/02/16 17:34 Dose: 81 mg Dextrose/Water (Dextrose 50% (Syg)) 25 ml IVP AD PRN PRN Reason: Hypoglycemia Stop: 05/04/17 12:55 Famotidine (Pepcid) 20 mg PO BID [facility] Stop: 05/04/17 21:01 Last Admin: 11/03/16 11:35 Dose: 20 mg Fluticasone Propionate (Flonase) 50 mcg NS DAILY PRN; Protocol PRN Reason: Allergy Symptoms Stop: 05/04/17 11:47 Heparin Sodium (Porcine) (Heparin) 5,000 unit SQ Q12HCO [facility] Stop: 05/04/17 18:01 Last Admin: 11/03/16 06:08 Dose: 5,000 unit Dextrose (Dextrose 5%) 1,000 mls @ 100 mls/hr IVC .Q10H PRN PRN Reason: HYPOGLYCEMIA Stop: 05/04/17 12:55 Ibuprofen (Motrin) 400 mg PO Q6HR PRN PRN Reason: Mild Pain (1-3) Stop: 05/04/17 13:10 Insulin Human Lispro (Humalog) 0 units SQ TIDAC VIANCA PRN Reason: Protocol Stop: 05/04/17 16:31 Last Admin: 11/03/16 11:35 Dose: Not Given Insulin Human Lispro (Humalog) 0 units SQ HS VIANCA PRN Reason: Protocol Stop: 05/04/17 21:01 Last Admin: 11/02/16 20:30 Dose: Not Given Morphine Sulfate (Morphine Sulfate) 2 mg IVP Q4HR PRN PRN Reason: Severe Pain (7-10) Stop: 05/04/17 11:44 Naloxone HCl (Narcan) 0.4 mg IVP Q2MIN PRN PRN Reason: Opioid Reversal Stop: 05/04/17 11:44 Ondansetron HCl (Zofran) 4 mg IVP Q8HR PRN PRN Reason: Nausea And Vomiting Stop: 05/04/17 11:44 Pantoprazole Sodium (Protonix) 40 mg IVP DAILY [facility] Stop: 05/04/17 13:46 Last Admin: 11/03/16 11:35 Dose: 40 mg Simvastatin (Zocor) 80 mg PO QPM [facility] Stop: 05/04/17 18:01 Last Admin: 11/02/16 17:34 Dose: 80 mg Tamsulosin HCl (Flomax) 0.8 mg PO QPM VIANCA PRN Reason: Protocol Stop: 05/04/17 18:01 Last Admin: 11/02/16 17:34 Dose: 0.8 mg Vitamin B Complex/Vit C/Vit E (Stresstab) 1 each PO QPM [facility] Stop: 05/04/17 18:01 Last Admin: 11/02/16 17:34 Dose: 1 each - Imaging and Cardiology Echo: pending, report reviewed Other Results: 12 hour tele: avg HR-68 SR. Occasional PVC. - EKG Interpretation EKG results cardiology: personally reviewed Consult Discharge Plan - Plan Referrals: Kun Elaine Jr, MD [Primary Care Provider] - <Francie Ruggiero - Last Filed: 11/03/16 12:25> Date of Encounter: 11/03/16 Assessment and Plan Discussion w patient/family: The assessment and plan as outlined above was discussed with the patient and/or family members who expressed understanding and agreement. All questions were answered. Thank you for involving us in the care of your patient. Please call with any questions. History of Present Illness History of present illness: Mr. Leong is a 81 year old male All Systems Review: A 10-system review of systems was performed and is negative for pertinent findings except as documented above in the HPI. Physical Examination Vital Signs, Last 4 Hours Temp Pulse Resp BP Pulse Ox 11/03/16 11:48 97.9 F 69 15 138/82 93 11/03/16 11:02 95 Results 11/03/16 01:26 11/03/16 01:26 Lab Results 11/02/16 11/02/16 11/03/16 17:06 22:54 01:26 WBC 5.3 Hgb 10.7 L Hct 31.9 L Plt Count 160 Sodium Potassium Chloride Carbon Dioxide BUN Creatinine Glucose Calcium Troponin I 0.08 H* 0.10 H* 11/03/16 01:26 WBC Hgb Hct Plt Count Sodium 138 Potassium 4.0 Chloride 103 Carbon Dioxide 29 BUN 18 Creatinine 1.18 Glucose 190 H Calcium 9.2 Troponin I - Attending Attestation I examined this patient and my medical decision-making was reviewed with the FAMILY PRACTICE DOCTOR/PA/Advanced Practice Nurse/Resident Physician. I agree with the documented findings, disposition and treatment plan. Mr. Leong presents with chest pain and elevated troponin concerning for NSTEMI. Risk factors include age, male gender, diabetes, HTN and HPL. We recommended proceeding with [facility]. The R/B/A of the procedure were discussed with the patient who expressed understanding and agreement to proceed. He was accompanied by family. Continue asa, BB and statin. Echo pending.
--- NOTE | 2016-11-03 11:14 | Pre-Sedation Evaluation ---
Pre-sedation evaluation - Pre-sedation checklist Date of procedure: 11/03/16 Procedure: [facility] Recent Vitals: Last Vital Signs Temp 97.9 F 11/03/16 07:19 Pulse 70 11/03/16 07:19 Resp 15 11/03/16 07:19 BP 134/86 11/03/16 07:19 Pulse Ox 95 11/03/16 11:02 H&P (including ROS) documented in medical record: Yes Previous reaction to sedatives/anesthetics: No Dietary Status: NPO after Midnight Airway Assessment: Patient can open mouth completely, TMJ function normal, Micrognathia (under-bite, receding chin) absent, Neck with adequate range of motion Dentition: dentures removed Possible difficult airway: No ASA Classification *see protocol: CLASS II-Mild systemic disease Plan of Care: Pt appropriate candidate for procedure/moderate/conscious sedation , Risks/benefits of procedure/sedation discussed w/ patient/family
[2016-11-03] MEDS: Famotidine 20 MG TABLET PO SCH ×2 (11:35→20:57)
[2016-11-03] MEDS: Insulin LISPRO 300 UNITS/3 ML VIAL SQ SCH ×4 (11:35→21:54)
[2016-11-03] MEDS: Pantoprazole 40 MG VIAL IVP SCH (11:35)
--- NOTE | 2016-11-03 12:50 | Internal Med Progress Note ---
Date of Encounter: 11/03/16 Time of Encounter: 08:50 - Assessment and plan (1) Chest pain Current Visit: Yes Status: Acute Assessment and plan: Chest pain has resolved. Mild elevation in troponins. Cardiology consulted. We will cancel stress due to mild elevation in troponins. Get 2-D echocardiogram. Patient may need cardiac catheterization. Moderate risk for complications. Qualifiers: Chest pain type: precordial pain Qualified Code(s): R07.2 - Precordial pain (2) COPD (chronic obstructive pulmonary disease) Current Visit: Yes Status: Chronic Assessment and plan: Not in acute exacerbation. Continue bronchodilators as needed. Qualifiers: COPD type: unspecified COPD Qualified Code(s): J44.9 - Chronic obstructive pulmonary disease, unspecified (3) Diabetes Current Visit: Yes Status: Chronic Assessment and plan: Blood sugars remain elevated. We will increase sliding scale coverage. Qualifiers: Diabetes mellitus type: type 2 Diabetes mellitus complication status: with hyperglycemia Diabetes mellitus fdc insulin use: without fdc use Qualified Code(s): E11.65 - Type 2 diabetes mellitus with hyperglycemia (4) Dizziness Current Visit: Yes Status: Acute Assessment and plan: Denies any dizziness today. Awaiting physical therapy evaluation. Orthostats negative. (5) Elevated troponin Current Visit: Yes Status: Acute (6) Hyperlipidemia Current Visit: Yes Status: Chronic Assessment and plan: Well-controlled. Continue statin. Qualifiers: Hyperlipidemia type: pure hypercholesterolemia Qualified Code(s): E78.00 - Pure hypercholesterolemia, unspecified; E78.0 - Pure hypercholesterolemia (7) Hypertension Current Visit: Yes Status: Chronic Assessment and plan: Well-controlled. Continue current antihypertensive regimen. Qualifiers: Hypertension type: essential hypertension Qualified Code(s): I10 - Essential (primary) hypertension - Subjective Interval history: No chest pain. Denies any shortness of breath today. No palpitations. No nausea or vomiting. No other acute issues reported overnight. Has significant decreased hearing at baseline. - Constitutional Vitals: Temp Pulse Resp BP Pulse Ox 97.9 F 69 15 138/82 93 11/03/16 11:48 11/03/16 11:48 11/03/16 11:48 11/03/16 11:48 11/03/16 11:48 General appearance: Present: cooperative, A&O X 3, pleasant, no acute distress, obese, answers questions appropriately - Neck Neck exam general surgery: Present: supple, trachea midline. Absent: lymphadenopathy - Respiratory Respiratory exam: Present: CTAB. Absent: accessory muscle use, rales, rhonchi, wheezes - Cardiovascular Cardiovascular exam: Present: RRR, +S1, +S2. Absent: diastolic murmur, gallop, rubs, systolic murmur - GI/Abdominal GI/Abdominal exam: Present: normal bowel sounds, soft, no peritoneal signs. Absent: distended, tenderness - Extremities Exam Extremities exam: Present: warm, radial pulses palpable and symetrical. Absent : calf tenderness, cyanotic, pedal edema - Neurological Exam Neurological exam: Present: alert, oriented X3, no focal deficits. Absent: facial droop, speech deficit - Skin Skin exam: Present: dry, intact Internal Medicine: Result - Labs CBC & Chem 7: 11/03/16 01:26 11/03/16 01:26 Labs: Short CBC 11/03/16 Range/Units 01:26 WBC 5.3 (4.3-11.1) K/mcL Hgb 10.7 L (12.9-16.9) g/dL Hct 31.9 L (37.5-50.1) % Plt Count 160 (140-400) K/mcL Neutrophils # 2.3 (1.6-8.9) K/mcL BMP 11/03/16 01:26 Sodium 138 Potassium 4.0 Chloride 103 Carbon Dioxide 29 BUN 18 Creatinine 1.18 Glucose 190 H Calcium 9.2 Cardiac Enzymes 11/02/16 11/02/16 Range/Units 17:06 22:54 Troponin I 0.08 H* 0.10 H* (0-0.03) ng/mL - ABG Interpretation ABG results: PT/INR, D-dimer PT 11.1 Seconds (9.4-12.1) 11/02/16 09:54 Consult Discharge Plan - Plan Referrals: Kun Elaine Jr, MD [Primary Care Provider] -
[2016-11-03] MEDS ORDERED: Nitroglycerin 1,000 MCG/10 ML VIAL IV ONE (12:56)
[2016-11-03] MEDS ORDERED: *HR* Heparin 10,000 UNIT/10 ML VIAL ONE (12:56)
[2016-11-03] MEDS ORDERED: 0.9 % Sodium Chloride 1,000 ML ONE ×2 (12:56→13:25)
[2016-11-03] MEDS ORDERED: Heparin 1,000 UNITS/500 mL NS 500 ML ONE (12:56)
[2016-11-03] MEDS ORDERED: *HR* Midazolam HCl 2 MG/2 ML VIAL ONE (13:24)
[2016-11-03] MEDS ORDERED: *HR* FentaNYL (PF) 100 MCG/2 ML VIAL ONE (13:25)
[2016-11-03] MEDS ORDERED: Verapamil 5 MG/2 ML VIAL ONE (14:00)
--- NOTE | 2016-11-03 15:01 | Invasive Diagnostic Lab Proc ---
Name: Ton Leong Date of Study: 11/03/2016 Date: 1935 Ht: 66.1in Medical Record#: [id number] Age: 81 Wt: 198.42lb Gender: Male BSA: 2. Order #: [id number] BMI: 31.89 Physicians Procedure Physician: Pamela Marvin MD, [facility] Referring MD: Referring MD: Staff Name Position Time In Micha Sharma RN Hand Mounter 01:19 PM Divya Martins RT (R) Monitor 01:19 PM Sites, Patricia RT (R) Scrub 01:19 PM Indications Indication Non-Stemi Procedures Performed Procedure CORONARY ARTERY ANGIO S\\T\\I Pre-Procedure Checklist Informed consent is complete signed and on chart. H\\T\\P is on chart. ID band is on and ID verified with patient. Patient NPO for procedure The procedure was described for the patient and questions were answered. Blood Pressure: 138/82 ECG is on chart. Rhythm: NSR Plan of Care Patient will tolerate the procedure without complications. Adequate level of comfort will be maintained. Hemodynamics will remain stable Patient will recover from procedure without complications. Respiratory function will be maintained. Cardiac rhythm will remain stable. Patient temperature will be maintained. Patient and/or family have verbalized understanding of the procedure. Patient Education Chief Complaint/Reason for Test: Cardiac Cath Developmental Category: Geriatric (65+ years) Learning Barriers: None Education Needs: Procedure Education Method: Verbal Information Taught: Cardiac Cath Educational Evaluation: Able to repeat information Intravenous Access Time IV Size Location DC'd Fluid/Drip Rate Units RN 20g 1 /" Patent On Arrival Lt Antecubital 0.9NaCl 25 ml/hr Micha Sharma RN Allergies Oxycodone acetaminophen Vital Signs Time BP (mmHg) HR (bpm) O2 Sat. RR (bpm) LOC 01:10 PM 138 / 82 69 93 % 16 5 = Fully awake and oriented or at pre-proc level 01:35 PM / % 5 = Fully awake and oriented or at pre-proc level 01:35 PM / % 4 = Oriented but drowsy 01:50 PM / % 4 = Oriented but drowsy 02:07 PM / % 4 = Oriented but drowsy 01:51 PM 135 / 71 70 98 % 30 01:54 PM 135 / 79 74 99 % 20 01:57 PM 136 / 80 72 99 % 32 02:00 PM 137 / 74 70 99 % 22 02:03 PM 131 / 73 70 99 % 42 02:06 PM 104 / 62 79 96 % 20 02:09 PM 101 / 60 76 96 % 27 02:12 PM 113 / 66 75 96 % 27 02:15 PM 116 / 68 74 97 % 19 02:18 PM 122 / 60 67 98 % 19 01:31 PM 153 / 84 74 98 % 20 01:33 PM 154 / 86 74 100 % 16 01:36 PM 129 / 73 72 98 % 21 01:39 PM 136 / 82 71 99 % 21 01:42 PM 135 / 75 72 98 % 21 01:45 PM 131 / 72 71 98 % 24 01:48 PM 130 / 73 78 98 % 21 02:21 PM 122 / 67 75 98 % 19 02:24 PM 128 / 71 71 98 % 28 02:27 PM 128 / 74 71 98 % 21 02:30 PM 127 / 76 67 97 % 20 02:22 PM / % 5 = Fully awake and oriented or at pre-proc level Procedural Medications Time Medication Dose Units Method Given By 01:34 PM Oxygen 2 L/min nasal cannula Micha Sharma RN 01:34 PM Versed 1 mg Intravenous Micha Sharma RN 01:34 PM Fentanyl 25 mcg Intravenous Micha Sharma RN 01:40 PM Lidocaine 2% 17 ml Subcutaneous Pamela Marvin MD, [facility] 02:01 PM Versed 1 mg Intravenous Micha Sharma RN 02:01 PM Fentanyl 25 mcg Intravenous Micha Sharma RN 02:01 PM Lidocaine 2% 0.5 ml Subcutaneous Pamela Marvin MD, [facility] 02:04 PM Heparin 4000 units Nitroglycerin 200 mcg Verapamil 2.5 mg Intraarterial Pamela Marvin MD, [facility] ASA Classification: CLASS II- Mild systemic disease (i.e. well-controlled diabetes, hypertension, asthma, cigarette smoking) Cata Score Preprocedure Postprocedure Activity 2- Moves 4 extremities sustained head lift Activity 2- Moves 4 extremities sustained head lift Circulation 2- SBP +/= 20 points of pre-anesthetic level Circulation 2- SBP +/= 20 points of pre-anesthetic level Consciousness 2- Awake and alert oriented x 3 Consciousness 2- Awake and alert oriented x 3 O2 Saturation 2- Able to maintain O2 satruation of 92% on room air O2 Saturation 2- Able to maintain O2 satruation of 92% on room air Respiratory 2- Able to deep breathe and cough well Respiratory 2- Able to deep breathe and cough well Total Score 10 Total Score 10 Contrast Agent: Isovue Diagnostic Contrast: 115 ml Total Contrast: 115 ml Fluoro Dose: 505 mGy Procedure Log Time Note Enter By 01:10 PM Patient charges- Angio tray pack, Navilyst 3mm J, Pulse Oximetry and ACIST tubing and transducer tsites 01: PM Case Delayed No tsites : PM Micha Sharma RN Position: Hand Mounter Time in: : PM Divya Martins RT (R) Position: Monitor Time in: PM Patricia Camara RT (R) Position: Scrub Time in: PM IV Supplies used: J loop Angio Cath. PM Physician arrived : PM Meet and greet completed Sign in performed according to hospital policy. Procedure start : PM CathStat : PM Vitals capture started with the following parameters, Patient=Adult, Interval=3 min, Initial Azurqjuu=505 mmHg, Deflation Rate=5 mmHg, Cuff placed on Right Arm : PM Case Start :31 PM HR=74 bpm, RAFM=979/84 mmhg, SpO2=98.0 %, Resp=20 B/min, Comment=NSR :33 PM HR=74 bpm, QSXW=407/86 mmhg, ReW0=168.0 %, Resp=16 B/min, Comment=NSR :34 PM ASA Class CLASS II- Mild systemic disease (i.e. well-controlled diabetes, hypertension, asthma, cigarette smoking) PM Time: 13:34 Oxygen on at 2 L/min per nasal cannula by Micha Sharma RN PM Time: 13:34 Versed 1 mg Intravenous Given by Micha Sharma RN PM Time: 13:34 Fentanyl 25 mcg Intravenous Given by Micha Sharma RN christa 35 PM Time: 13:35 Patient comfortable and pain free: Yes PM Time: 13:35LOC: 5 = Fully awake and oriented or at pre-proc level dspell 01:36 PM Clinical Presentation: Non-STEMI dspell 01:36 PM HR=72 bpm, YKWR=522/73 mmhg, SpO2=98.0 %, Resp=21 B/min, Comment=NSR 01:39 PM HR=71 bpm, FTNX=042/82 mmhg, SpO2=99.0 %, Resp=21 B/min, Comment=NSR 01:40 PM Time out performed according to hospital policy dspell 01:40 PM Time: 13:40 17 ml Lidocaine 2% to right groin Subcutaneous Given by Pamela Marivn MD, [facility] dspell 01:41 PM Access obtained by percutaneous puncture. 5Fr 10cm Terumo Ottosen sheath placed in right Femoral artery. [id number] dspell 01:41 PM 0.035 145cm NavInnovatus Technologyst 3mmJ wire [id number] dspell 01:42 PM Pressure channel 1 zeroed. 01:42 PM HR=72 bpm, TKSX=002/75 mmhg, SpO2=98.0 %, Resp=21 B/min, Comment=NSR 01:45 PM HR=71 bpm, MCQZ=879/72 mmhg, SpO2=98.0 %, Resp=24 B/min, Comment=NSR 01:45 PM Sheath exchanged for a 6 Fr 45 cm Terumo Destination sheath [id number] dspellman 01:47 PM 5Fr FL 4 catheter inserted over the wire DN dspellman 01:48 PM HR=78 bpm, TEJQ=993/73 mmhg, SpO2=98.0 %, Resp=21 B/min, Comment=NSR 01:50 PM dspellman 01:50 PM unable to engage LCA due to tortuosity of aorta dspellman 01:50 PM Time: 13:35 Patient comfortable and pain free: Yes dspellman 01:51 PM HR=70 bpm, AHST=344/71 mmhg, SpO2=98.0 %, Resp=30 B/min, Comment=NSR 01:52 PM Recorded Pressure: Ao, HR=72, Condition=Condition 1 (Aorta) Ao 115/64/89 01:53 PM 5Fr FR 4 catheter inserted over the wire DN dspell 01:53 PM unable to engage RCA dspellman 01:53 PM Sheath exchanged for a 6 Fr 11 cm Terumo Ottosen sheath [id number] dspell 01:54 PM HR=74 bpm, ZUWK=969/79 mmhg, SpO2=99.0 %, Resp=20 B/min, Comment=NSR 01:57 PM HR=72 bpm, ZSFU=827/80 mmhg, SpO2=99.0 %, Resp=32 B/min, Comment=NSR 01:58 PM Setting up for Left radial access dspell 02:00 PM HR=70 bpm, WBJG=749/74 mmhg, SpO2=99.0 %, Resp=22 B/min, Comment=NSR 02:01 PM Time: 14:01 Versed 1 mg Intravenous Given by Micha Sharma RN darlene 02:01 PM Time: 14:01 Fentanyl 25 mcg Intravenous Given by Micha Sharma RN [facility] 02:01 PM Recorded Pressure: Ao, HR=70, Condition=Condition 1 (Aorta) Ao 150/58/90 02:01 PM Time: 14:01 0.5 ml Lidocaine 2% to left radial Subcutaneous Given by Pamela Marvin MD, [facility] 02:03 PM HR=70 bpm, XKPB=604/73 mmhg, SpO2=99.0 %, Resp=42 B/min, Comment=NSR 02:04 PM Access obtained by percutaneous puncture. 5Fr 10cm Terumo Glidesheath sheath placed in left Radial artery. [id number] [facility] 02:04 PM Time: 14:04 Patient given 4,000 units Heparin, 200 mcg Nitroglycerin, and 2.5 mg Verapamil Intraarterial by Pamela Marvin MD, [facility] 02:05 PM Pressure channel 1 zeroed. 02:06 PM HR=79 bpm, VJTH=272/62 mmhg, SpO2=96.0 %, Resp=20 B/min, Comment=NSR 02:06 PM Time: 13:50 Patient comfortable and pain free: Yes [facility] PM Time: 13:50LOC: 4 = [facility]ed [facility] 02[facility]07 PM 0.035 260cm Mallincnoodlsodt Wholey Hi-Torque wire [id number] [facility] 02:09 PM HR=76 bpm, BDFE=054/60 mmhg, SpO2=96.0 %, Resp=27 B/min, Comment=NSR 02:09 PM 5Fr FR 4 catheter inserted over the wire [facility] 02:09 PM contrast injected images obtained of the left arm 02:12 PM Recorded Pressure: Ao, HR=80, Condition=Condition 1 (Aorta) Ao 106/66/86 02:12 PM HR=75 bpm, MNHQ=308/66 mmhg, SpO2=96.0 %, Resp=27 B/min, Comment=NSR 02:13 PM Recorded Pressure: Ao, HR=75, Condition=Condition 1 (Aorta) Ao 100/71/86 02:14 PM RCA angiography performed in multiple views. 02:15 PM HR=74 bpm, SDDD=880/68 mmhg, SpO2=97.0 %, Resp=19 B/min, Comment=NSR 02:16 PM 5Fr FL 4 catheter inserted over the wire [facility] 02:16 PM LCA angiography performed in multiple views. 02:17 PM Recorded Pressure: Ao, HR=74, Condition=Condition 1 (Aorta) Ao 123/69/93 02:18 PM HR=67 bpm, FOGP=392/60 mmhg, SpO2=98.0 %, Resp=19 B/min, Comment=NSR 02:19 PM Coronary Dominance: right 02:21 PM HR=75 bpm, ZJMN=533/67 mmhg, SpO2=98.0 %, Resp=19 B/min, Comment=NSR 02:21 PM Lesion found in Mid LAD. Pre Stenosis: 50 Pre ANGEL Flow: PM Time: 14:07LOC: 4 = Oriented but drowsy PM Time: 14:06 Patient comfortable and pain free: Yes [facility] PM Bolus angiogram of right Femoral complete: 4 ml/sec for a total of 7 mls PM Catheter removed PM Wire removed PM Procedure completed at 14:[facility] [place] [facility] PM HR=71 bpm, MZGQ=806/71 mmhg, SpO2=98.0 %, Resp=28 B/min, Comment=NSR PM Sign out completed: Radiation Dose 504.92 mGy Fluoro Time: 12.2 Isovue 370 - 200ml contrast 115 ml given by Pamela Marvin MD, [facility]. Complications: NoneCardiac Rehab Consult needed: NoConfirmed administered medications: Yes dspell 02:25 PM Arterial sheath pulled,Right groin, Mynx closure device used and was Successful S/N. dspell 02:26 PM Arterial sheath pulled, Vasc Band closure device used and was Successful S/N. dspell 02:26 PM 12 ml air in Vasc Band. dspell 02:26 PM Post ECG NSR dspell 02:27 PM Post Blood Pressure 128/71 dspellman 02:27 PM 14:27 Post Pulses Lt Radial 1+ dspell 02:27 PM 14:27 Post Pulses Bilateral DP \\T\\ PT 2+ dspellman 02:27 PM HR=71 bpm, NYYS=011/74 mmhg, SpO2=98.0 %, Resp=21 B/min, Comment=NSR 02:30 PM HR=67 bpm, GVBN=107/76 mmhg, SpO2=97.0 %, Resp=20 B/min, Comment=NSR 02:33 PM Family placed in consult room. dspell 02:33 PM Complications: None dspell 02:33 PM Fluoro Time: 12.2 dspell 02:34 PM Isovue 370 - 200ml contrast 115 ml given by Pamela Marvin MD, [facility]. ell 02:34 PM Radiation Dose 504.92 mGy dspell 02:35 PM [ Start or Stop Vital ] 02:35 PM Site status No bleeding/hematoma - Rt Groin as reported by Sites, Patricia RT (R) at 14:35 dspellman 02:35 PM Site status No bleeding/hematoma - Lt Wrist as reported by Sites, Patricia RT (R) at 14:35 dspellman 02:35 PM Opsite applied dspell 02:35 PM Delay to floor No dspellman 02:36 PM Information taught Cardiac Cath, Mynx, and Vasc Band dspell 02:36 PM Education needs Procedure, Plan of Care, and Responsibilities of Patient in Care dspell 02:36 PM Learning barriers :None dspell 02:36 PM Education Methods Verbal dspell 02:36 PM Education evaluation Able to repeat information dspell 02:37 PM Lesion found in Proximal LAD. Pre Stenosis: 40 Pre ANGEL Flow: dspellman 02:37 PM Time: 14:22 Patient comfortable and pain free: Yes dspellman 02:37 PM Time: 14:22LOC: 5 = Fully awake and oriented or at pre-proc level dspellman 02:41 PM Lesion found in LMCA. Pre Stenosis: 30 Pre ANGEL Flow: dspellman 02:41 PM Lesion found in Proximal LAD. Pre Stenosis: 40 Pre ANGEL Flow: dspellman 02:41 PM Lesion found in 1st Diagonal. Pre Stenosis: 30 Pre ANGEL Flow: dspellman 02:41 PM Lesion found in 2nd Diagonal. Pre Stenosis: 40 Pre ANGEL Flow: dspellman 02:41 PM Lesion found in Proximal Circumflex. Pre Stenosis: 30 Pre ANGEL Flow: dspellman 02:41 PM Lesion found in 1st Marginal. Pre Stenosis: 25 Pre ANGEL Flow: dspellman 02:42 PM Lesion found in Proximal RCA. Pre Stenosis: 30 Pre ANGEL Flow: dspellman 02:42 PM Lesion found in Mid RCA. Pre Stenosis: 30 Pre ANGEL Flow: dspellman 02:42 PM Lesion found in Distal RCA. Pre Stenosis: 40 Pre ANGEL Flow: dspellman Complications Complication None None Hemodynamics Pressures Site Systolic/A Wave Diastolic/V Wave Mean AO 115 64 89 AO 150 58 90 AO 106 66 86 AO 100 71 86 AO 123 69 93 Post Procedure Information Blood Pressure: 128/71 mmHg Rhythm: NSR Post procedural instructions were given Closure Device Time Device Success/Fail 11/03/2016 2:43:00 PM MynxGrip Rt Groin Successful 11/03/2016 2:43:00 PM Mechanical Compression LT wrist Successful Site Checks Time Location Status Staff Sheath In? Note 02:35 PM Rt Groin No bleeding/hematoma Sites, Patricia RT (R) 02:35 PM Lt Wrist No bleeding/hematoma Sites, Patricia RT (R) Pulses Time Site Pre-Procedure Post-Procedure Note 11/03/2016 1:10:00 PM Bilateral DP \\T\\ PT 2+ 2:27:00 PM Lt Radial 1+ 2:27:00 PM Bilateral DP \\T\\ PT 2+ Updated by Divya Martins RT (R) on 11/03/2016 2:54:08 PM Divya Martins RT electronically signed on 11/03/2016 2:56:47 PM with status of Final
--- NOTE | 2016-11-03 15:12 | Invasive Diagnostic Lab ---
Name: Ton Leong Date of Study: 11/03/2016 Date: 1935 Ht: 168.0 cm /66.1 in Medical Record#: [id number] Age: 81 Wt: 90. kg / 198.42 lb Account/Order#: [id number] Gender: Male BSA: 2. 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 Patient has very tortuous aorta, unable to reach coronary arteries from femoral access. Left radial access obtained to complete case. Recommendations: Optimal medical therapy of patient's disease. Aggressive risk factor modification. History/Risk Factors: CA Hypertension Dyslipidemia Chronic Lung Disease Procedure Access obtained in the right femoral artery by percutaneous puncture. Access obtained in the left Radial artery by percutaneous puncture. Complications: None, None Contrast: Isovue 115ml Closure Device: MynxGrip Rt Groin, Mechanical Compression LT wrist Hemodynamics: Pressures Site Systolic/ A Wave Diastolic/ V Wave End Diastolic/ Mean HR AO 115 64 89 72 AO 150 58 90 70 AO 106 66 86 80 AO 100 71 86 75 AO 123 69 93 74 Coronary Dominance: right Lesion Findings/Interventions * Left Main Coronary Artery There is a 30% stenosis in the LMCA. * Left Anterior Descending There is a 40% stenosis in the Proximal LAD. There is a 50% stenosis in the Mid LAD. There is a 30% stenosis in the 1st Diagonal. There is a 40% stenosis in the 2nd Diagonal. * Circumflex There is a 30% stenosis in the Proximal Circumflex. There is a 25% stenosis in the 1st Marginal. * Right Coronary Artery There is a 30% stenosis in the Proximal RCA. There is a 30% stenosis in the Mid RCA. There is a 40% stenosis in the Distal RCA. Updated by RT Selwyn (R) on 11/03/2016 2:49:35 PM Pamela Marvin MD, FACC electronically signed on 11/03/2016 3:06:18 PM with status of Final
[2016-11-03] MEDS: Vitamin B Complex/Vit C/Vit E 1 EACH TABLET PO SCH (17:55)
[2016-11-03] MEDS: Aspirin Enteric Coated 81 MG Tablet PO SCH (17:55)
[2016-11-04 03:07] LABS: Basophils % 0.4 %; Eosinophils # 0.2 K/mcL (0.0-0.6); Eosinophils % 2.5 %; Hematocrit 33.5 % (37.5-50.1); Hemoglobin 11.3 g/dL (12.9-16.9); Immature Granulocytes % 0.4 % (0-4); Lymphocytes # 2.1 K/mcL (0.6-4.6); Mean Corpuscular HGB Conc 33.7 g/dL (31.6-35.5); Mean Corpuscular Hemoglobin 32.1 pg (28.0-33.3); Mean Corpuscular Volume 95.2 fL (83.0-100.0); Mean Platelet Volume 10.9 fL (9.4-12.4); Monocytes # 0.8 K/mcL (0.0-1.3); Monocytes % 11.2 %; Neutrophils # 4.1 K/mcL (1.6-8.9); Platelet Count 177 K/mcL (140-400); Red Blood Count 3.52 M/mcL (4.19-5.50); Red Cell Distribution Width 13.8 % (11.5-14.5); Segmented Neutrophils % 56.5 %
[2016-11-04 03:27] LABS: BUN/Creatinine Ratio 16 (6-26); Blood Urea Nitrogen 18 mg/dL (8-26); Calcium 9.3 mg/dL (8.6-10.8); Carbon Dioxide 27 mEq/L (19-29); Chloride 104 mEq/L (98-109); Glucose 195 mg/dL (70-99); Osmolality,Calculated 293 (280-300); Potassium 4.5 mEq/L (3.5-4.5); Sodium 138 mEq/L (136-145); eGFR For African Americans > 60 (> 60); eGFR For Non-African Americans > 60 (> 60)
[2016-11-04] MEDS: *HR* Heparin 5,000 UNIT/ML VIAL SQ SCH (05:39)
[2016-11-04 07:33] VITALS: BP 111/65
[2016-11-04] MEDS: Insulin LISPRO 300 UNITS/3 ML VIAL SQ SCH (08:21)
[2016-11-04] MEDS: Famotidine 20 MG TABLET PO SCH (08:21)
[2016-11-04] MEDS: Pantoprazole 40 MG VIAL IVP SCH (08:26)
--- NOTE | 2016-11-04 10:59 | Discharge Summary ---
Date of Encounter: 11/04/16 Time of Encounter: 10:30 - Discharge Diagnosis (1) NSTEMI (non-ST elevated myocardial infarction) Priority: Primary Status: Acute (2) Chest pain Priority: Secondary Status: Acute Qualifiers: Chest pain type: precordial pain Qualified Code(s): R07.2 - Precordial pain (3) COPD (chronic obstructive pulmonary disease) Priority: Secondary Status: Chronic Qualifiers: COPD type: unspecified COPD Qualified Code(s): J44.9 - Chronic obstructive pulmonary disease, unspecified (4) Diabetes Priority: Secondary Status: Chronic Qualifiers: Diabetes mellitus type: type 2 Diabetes mellitus complication status: with hyperglycemia Diabetes mellitus fdc insulin use: 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 Qualified Code(s): E11.65 - Type 2 diabetes mellitus with hyperglycemia (5) Dizziness Priority: Secondary Status: Acute (6) Elevated troponin Priority: Secondary Status: Acute (7) Hyperlipidemia Priority: Secondary Status: Chronic Qualifiers: Hyperlipidemia type: pure hypercholesterolemia Qualified Code(s): E78.00 - Pure hypercholesterolemia, unspecified; E78.0 - Pure hypercholesterolemia (8) Hypertension Priority: Secondary Status: Chronic Qualifiers: Hypertension type: essential hypertension Qualified Code(s): I10 - Essential (primary) hypertension - Discharge Medications Prescriptions: Metformin HCl [Glucophage] 1,000 mg PO BID #60 tablet Metoprolol XL (24 HR) Succ [Toprol XL] 25 mg PO DAILY #30 tab.er.24h Home Medications: Acetaminophen [Tylenol Arthritis] 650 mg PO DAILY PRN 07/18/16 [History] Albuterol Sulfate [Albuterol Inhaler] 2 puff IH Q4HR PRN 07/18/16 [History] Aspirin Enteric Coated [Aspirin EC] 81 mg PO QPM 07/18/16 [History] Fluticasone Propionate Nasal [Flonase] 1 spr NS DAILY PRN 07/18/16 [History] Folic Acid/Vit Bcomp,C [Folbee Plus Tablet] 5 mg PO QPM 07/18/16 [History] Omeprazole [PriLOSEC] 40 mg PO QPM 07/18/16 [History] Simvastatin [Zocor] 80 mg PO QPM 07/18/16 [History] Tamsulosin [Flomax] 0.8 mg PO QPM 07/18/16 [History] Metformin HCl [Glucophage] 1,000 mg PO BID #60 tablet 11/04/16 [Rx] Metoprolol XL (24 HR) Succ [Toprol XL] 25 mg PO DAILY #30 tab.er.24h 11/04/16 [ Rx] Allergies/Adverse Reactions: Allergies acetaminophen [From Percocet] Adverse Reaction (Verified 07/18/16 12:59) COUGHING BLOOD Oxycodone [From Percocet] Adverse Reaction (Verified 07/18/16 12:59) COUGHING BLOOD Procedures/tests Complete & Pending: Procedures Performed prior 72 hours Category Date Time Status CL Cardiac Catheterization [CL] Routine Billing Services Manager 11/03/16 10:54 Completed ECG 12 lead ECG [ECG] AM 0600 Y 11/03/16 06:00 Ordered EV carotid duplex imaging BI Routine Y 11/04/16 12:30 Completed EV echocardiogram Routine Y 11/02/16 11:47 Completed Date of admission: 11/02/16 11:19 Primary care physician: Kun Elaine Jr, MD Consults: 11/02/16 11:45 Consult to Physical Therapy [CONS] Routine Comment: Evaluate, develop and implement POC Reason for Consult: pt eval Consult to Electrotyper Apprentice [CONS] Routine Reason for SW Consult: d/c planning 11/02/16 12:37 Consult to Nutrition [CONS] Routine Comment: DM education Consulting Provider: NUTRITION Reason for Dietary Consult: Diet Education 11/02/16 12:38 Consult to Intelligence Operations Specialist [CONS] Routine Comment: uncontrolled DM and needs help counting carbs Reason for Consult: uncontrolled DM , diet needd 11/03/16 08:41 Consult to Cardiology [CONS] Routine Comment: Consulting Provider: Cardiology Danielle Reason for Consult: Elevated troponins/ Chest pain Time Notified: 08:41 Call Completed: Yes Discharging clinician: Lydia Cheng Anticipated date of discharge: 11/04/16 - Patient Status Disposition: Home, Self-Care Condition: Good Functional capacity at discharge: independent ambulation Overall status at discharge: patient is progressing back to baseline - Discharge Instructions Instructions: Metoprolol (By mouth), Metformin (By mouth), Myocardial Infarction (DC), Chest Pain (DC), Diabetes Mellitus Type 2 in Adults (DC), Chronic Obstructive Pulmonary Disease (DC), Chronic Hypertension (DC) Follow Up With: Kun Elaine Jr, MD [Primary Care Provider] - Additional Instructions: Follow-up with cardiology in 1-2 weeks regarding coronary artery disease and carotid artery disease - Diet and Activity Activity: resume usual activities as tolerated Diet: diabetic diet, low fat, low cholesterol, low salt diet Hospital course: Mr. Leong is a 81 year old male patient with history of diabetes mellitus type 2, prostate cancer, COPD, hypertension, hyperlipidemia who presented to the ER with complaints of chest pain. He was also having some dizziness and lightheadedness that had been going on for about 4 days. His troponins were trended and they were slightly trending up. So cardiology was consulted. After evaluating the patient, they recommended left heart catheterization. Patient underwent left heart catheter yesterday and was found to have a tortuous aorta and required both femoral arterial and radial arterial access to better remains the coronaries. 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 He did not require any stenting. Medical management was recommended including aspirin, statin and beta ana lilia. He also needs to control his diabetes better as his A1c was 8%. Patient's 2-D echocardiogram showed EF of 55% with indeterminate left ventricular diastolic function and moderate aortic stenosis. Patient did have a left carotid bruit and carotid Dopplers were done. Carotid Dopplers appear to show nonstenotic plaque on the right side internal carotid artery with 40-59% stenosis in the left internal carotid artery with calcified plaque. This needs to be followed as outpatient and managed medically for now. At this time, patient is feeling much better and is stable to be discharged home. He will follow up with his primary care provider and cardiology for further management. - Time Spent with Patient Total time spent providing and/or coordinating discharge services: Less than 30 minutes (25 min) - Constitutional Vitals: Temp Pulse Resp BP Pulse Ox 98.0 F 59 15 111/65 98 11/04/16 07:00 11/04/16 07:00 11/04/16 07:00 11/04/16 07:00 11/04/16 07:00 General appearance: Present: cooperative, A&O X 3, pleasant, no acute distress, obese, answers questions appropriately - Eye Eye exam: Present: EOMI, PERRL, conjuntiva pink, sclera anicteric - Neck Neck exam general surgery: Present: supple, trachea midline. Absent: lymphadenopathy - Respiratory Respiratory exam: Present: CTAB. Absent: accessory muscle use, rales, rhonchi, wheezes - Cardiovascular Cardiovascular exam: Present: RRR, +S1, +S2, systolic murmur. Absent: diastolic murmur, gallop, rubs Additional comments: left carotid bruit - Extremities Exam Extremities exam: Present: warm, radial pulses palpable and symetrical. Absent : calf tenderness, cyanotic, pedal edema - Neurological Exam Neurological exam: Present: alert, oriented X3, no focal deficits. Absent: facial droop, speech deficit - Skin Skin exam: Present: dry, intact
--- NOTE | 2016-11-04 13:44 | Carotid Imaging Report ---
Carotid Duplex Patient Name:Ton Leong Order Number:[id number] Procedure Date:11/04/2016 Date:1935ge:81 yrs Gender:Male Lt BP:111 / 65 mmHg Rt.BP:111 / 65 mmHgHeart Rate: Location:[facility] Room #: 2NE17 [employer]canized [employer] Unit Operator:Julia Roe Referring MD:Marcella Adkins CNP triage registered nurse:Kun Elaine MD Reading MD:Maxime Montes MD Primary Indications:Dizziness, bruit Risk Factors Yes/No Hypertension Hypercholesterolemia Diabetes Hx of TIA Impressions: The right carotid artery has minimal plaque throughout. The left internal carotid artery has a 40-59% stenosis. Recommendations: Risk factor reduction. Follow-up carotid duplex in 1 year. Findings Carotid Duplex: Right: There is nonstenotic plaque in the right proximal common carotid artery. There is irregular heterogeneous plaque. There is nonstenotic plaque in the right mid common carotid artery. There is nonstenotic plaque in the right bifurcation. There is smooth heterogeneous plaque. There is nonstenotic plaque in the right proximal internal carotid artery. There is smooth heterogeneous plaque. There is nonstenotic plaque in the right eca. There is smooth homogeneous plaque. Left: There is nonstenotic plaque in the left proximal common carotid artery. There is irregular heterogeneous plaque. There is nonstenotic plaque in the left mid common carotid artery. There is irregular heterogeneous plaque. There is nonstenotic plaque in the left distal common carotid artery. There is smooth homogeneous plaque. There is nonstenotic plaque in the left bifurcation. There is calcified plaque. There is 40-59% stenosis in the left proximal internal carotid artery. There is smooth heterogeneous plaque. There is nonstenotic plaque in the left mid internal carotid artery. There is smooth homogeneous plaque. There is nonstenotic plaque in the left distal internal carotid artery. There is smooth homogeneous plaque. Carotid Results Right PSV EDV Assessment Proximal CCA 101 16 Non Stenotic Plaque Mid CCA 73 18 Non Stenotic Plaque Distal CCA 61 11 Normal Bifurcation 53 11 Non Stenotic Plaque Proximal ICA 62 15 Non Stenotic Plaque Mid ICA 88 29 Normal Distal ICA 109 38 Normal ECA 77 0 Non Stenotic Plaque Vertebral Artery 37 12 Antegrade Flow Left PSV EDV Assessment Proximal CCA 97 13 Non Stenotic Plaque Mid CCA 77 15 Non Stenotic Plaque Distal CCA 74 16 Non Stenotic Plaque Bifurcation 57 10 Non Stenotic Plaque Proximal ICA 136 37 40-59% stenosis Mid ICA 104 27 Non Stenotic Plaque Distal ICA 109 34 Non Stenotic Plaque ECA 111 0 Normal Vertebral Artery 74 15 Antegrade Flow Ratio's Right ICA/CCA Ratio: 1.49 ICA/CCA Values: 109/73 Left ICA/CCA Ratio: 1.12 ICA/CCA Values: 109/97 Updated by Maxime Montes MD on 11/04/2016 1:37:07 PM electronically signed on 11/04/2016 1:37:51 PM with status of Final
[2016-11-04] MEDS ORDERED: Famotidine 20 MG TABLET PO SCH (21:00)
== END 2016-11-04 12:30 | disposition home or self-care (01) ==
LOC: 2NENU 09:29 → EMEROO 09:29 → 2NENU 12:00
PROVIDERS: ADMIT Internal Medicine; ATTEND Internal Medicine